=== PATIENT | female | born 1950 | race Caucasian/White ===

== ENCOUNTER → 2020-07-01 | Outpatient (CLI) | payer OTHER | LOC: M.RAD 15:18 | PROVIDERS: ATTEND Family Medicine | DX: M85.88 Other specified disorders of bone density and structure, other site (principal) ==

== ENCOUNTER 2020-08-04 17:56 | Emergency (ER) | payer OTHER ==
[~2020-08-04] VITALS: Ht 154.9 cm; Wt 54.4 kg
[2020-08-04] MEDS ORDERED: VITAMIN D-40010 MCG PO (18:06)
[2020-08-04 18:52] VITALS: BP 177/87
== END 2020-08-04 18:53 | disposition home or self-care (01) ==
LOC: M.ERS 17:56
DX: S61.411A Laceration without foreign body of right hand, initial encounter (principal); Z79.899 Other long term (current) drug therapy; Z88.5 Allergy status to narcotic agent; W01.198A Fall on same level from slipping, tripping and stumbling with subsequent striking against other object, initial encounter; Y93.01 Activity, walking, marching and hiking; Y92.89 Other specified places as the place of occurrence of the external cause; Y99.8 Other external cause status